=== PATIENT | female | born 1975 | race Caucasian/White ===

== ENCOUNTER 2016-10-26 13:46 | Day surgery (SDC) | payer OTHER ==
[2016-10-26] VITALS (10 sets, daily range): BP systolic 108–155; BP diastolic 46–132; PULSE 74–99; RESP 12–18; O2SAT 97–100
[~2016-10-26] VITALS: Ht 177.8 cm; Wt 98.2 kg
[~2016-10-26 13:46] MED LIST: CIPR-198 PO; LEVO50TA6 PO; OMEP-113 PO
[2016-10-26] MEDS ORDERED: fentaNYL-PF 50 mCg/mL 2 mL Inj ONE (13:47)
[2016-10-26] MEDS ORDERED: Lactated Ringer's 1,000 ML IV ONE (15:13)
[2016-10-26] MEDS ORDERED: OXYC1TAB24 PO (15:51)
[2016-10-26] MEDS ORDERED: TAMS0.4C29 PO (15:51)
[2016-10-26] MEDS ORDERED: CeFAZolin Inj 2 gm / 50mL D5W IV ONE (15:53)
--- NOTE | 2016-10-26 16:42 | PCM.HPANE ---
Patient Data Surgeon Admitting Provider: Attending Provider:Amrik Carmona MD Primary Care Physician:Sandi Hidalgo Other Provider:Erica Dobbins Anesthesia Reason for Visit Right Stone Ht/WT & BMI Height (Feet): 5 Height (Inches): 10 Weight (Kilograms): 98.2 Body Mass Index 30.00 Allergies Coded Allergies: TAPE (Verified Allergy, Unknown, 10/26/16) No Known Allergies (Verified , 10/26/16) Past Anesthesia History Anesthesia History: Denies:: Anesthesia Reactions Diabetes History Hx Diabetes?: No MRSA MRSA: No Medications Home Meds Incl Beta Edenilson: No Reported Medications oxyCODONE-Acetaminophen 5-325 mg 1 Each Tablet1 Tab PO Q6H PRN For Pain Ref 0 10/26/16 Tamsulosin ER 0.4 Mg Cap.er.24h0.4 Mg PO DAILY Ref 0 10/26/16 Ciprofloxacin 500 Mg Cityag595 Mg PO BID 10 Days Ref 0 02/08/14 Discontinued Reported Medications Omeprazole Magnesium (Omeprazole)20 Mg Capsule.dr20 Mg PO BID 30 Days Ref 0 02/08/14 Levothyroxine 50 Mcg Cfzugr60 Mcg PO DAILY 30 Days Ref 0 02/08/14 History History of ENT Problems?: No HEENT History: Denies:: Cataracts Dysphagia Sinus Problem Hx of Heart Problems?: No Hx of Respiratory Problem?: No Respiratory History: Denies:: Asthma COPD Chest Surgery Dyspnea Emphysema Hemoptysis Pneumonia Tuberculosis Hx Neurologic Problems?: Yes Neurological History: Positive for:: Dizziness (dizzy spells for six months) Headaches Denies:: Alzheimer's Disease CVA Dementia Parkinson's Disease Seizures Hx of GI Problems?: No Hx of Problems?: No Genitourinary History: Denies:: Kidney Stones Urinary Tract Infection Female Hx: Denies:: Currently Hx of Psycho/Social Problems?: Yes Psycho Social History: Positive for:: Anxiety Bipolar Disorder Hx Depression Suicide Attempt Hx Surgeries?: Yes (several abd, knee and foot) Other History: Positive for:: Hospitalization Denies:: Cancer Thyroid Disease History Blood Transfusions: Denies:: Blood Transfuse Reaction Blood Transfusions Hx Diabetes: No Hx Alcohol Use: Yes (couple drinks a week)Hx Substance Use: Yes Stop/Bang Risk Assessment Category Category 1A: Patient has history of documented sleep apnea, and HAS NOT received any narcotic, sedative or anesthesia administration during this stay. Category 1B: Patient has history of documented sleep apnea, and HAS received any narcotic , sedative or anesthesia administration during this stay Category 2: Patient has SUSPECTED Obstructive Sleep Apnea, and HAS received any narcotic , sedative or anesthesia administration during this stay. Category 3: Patient has SUSPECTED Obstructive Sleep Apnea and HAS NOT received narcotic, sedative or anesthesia administration during this stay. Category 4: Outpatient in Procedural Areas with known sleep apnea or who screen positive for High Risk via the STOP/BANG questionnaire. Exam Exam Vital Signs Vital Signs Date Time Temp Pulse Resp B/P Pulse Ox O2 Delivery O2 Flow Rate FiO2 10/26/16 15:16 36.8 96 18 123/64 99 Room Air General Appearance: Alert, Oriented X3, Cooperative HEENT/AIRWAY: MP 2, Neck Movement (from), Mouth Opening (wnl) Lungs: Clear to Auscultation Heart: Exam Unremarkable Meds/Labs/Diagnostics Admission Meds Current Medications Lactated Ringer's (Lr) 1,000 ml @ ud STK-MED ONCE IV Last administered on t 15:13; Start 10/26/16 at 15:13; Stop 10/26/16 at 15:14; Status DC Plan Impression Patient chart reviewed, patient interviewed and anesthestic plan with risks, benefits, and alternatives discussed, and informed consent obtained. NPO Status: 10/25 ASA Physical Status: ASA2 Mod Systemic Disease Anesthetic Plan: GA Bene/Risks/Altern/Consents: Yes HP Complete Prior to Induction: Yes Landon Mckinney MD Oct 26, 2016 16:42
--- NOTE | 2016-10-26 16:49 | DRSVH ---
PROCEDURE: X-RAY KUB ([id number]) INDICATIONS: PRE OP TECHNIQUE: One view of the abdomen acquired. COMPARISON: [facility], CT, CT ABDOMEN PELVIS W CONTRAST, 10/24/2016, 10:45 PM. FINDINGS: Surgical changes and devices: An IUD is projected over the pelvis. There is likely a radiopaque objec t superimposed over the patient's right upper quadrant. Anastomotic suture is present in the left upp er quadrant. Bowel: Bowel gas pattern is normal. Soft tissues: No suspicious abdominal calcifications. Visualized solid organ contours appear normal in size. Bones: No suspicious bony lesions. IMPRESSION: No acute intra-abdominal findings. Dictated by: Sumaya Bennett M.D. on 10/26/2016 at 16:45 Approved by: Sumaya Bennett M.D. on 10/26/2016 at 16:47
[2016-10-26] MEDS ORDERED: Lactated Ringer's 1,000 ML IV SCH (17:17)
[2016-10-26] MEDS ORDERED: Lactated Ringer's 500 ML IV PRN (17:17)
[2016-10-26] MEDS ORDERED: hydrALAZINE 20 mg/mL Inj IVPUSH PRN (17:20)
[2016-10-26] MEDS ORDERED: EPHEDrine Sulfate 50 mg/mL Inj IM PRN (17:20)
[2016-10-26] MEDS ORDERED: Dexamethasone 4 mg/mL Inj IVPUSH PRN (17:20)
[2016-10-26] MEDS ORDERED: Atropine 0.4 mg/mL Inj IVPUSH PRN (17:20)
[2016-10-26] MEDS ORDERED: Labetalol 5 mg/mL 4 mL Inj IV PRN (17:20)
[2016-10-26] MEDS ORDERED: fentaNYL-PF 50 mCg/mL 2 mL Inj IVPUSH PRN (17:20)
[2016-10-26] MEDS ORDERED: Phenylephrine 10,000 mCg/mL Inj IVPUSH PRN (17:20)
[2016-10-26] MEDS ORDERED: hydrOXYzine Inj 25 MG/1 mL SDV IM PRN (17:20)
[2016-10-26] MEDS ORDERED: Ondansetron 2 mg/mL 2 mL Inj IVPUSH PRN (17:20)
[2016-10-26] MEDS ORDERED: EPHEDrine Sulfate 50 mg/mL Inj IVPUSH PRN (17:20)
[2016-10-26] MEDS ORDERED: Belladonna Alk-Opium 60 mg Rectal Suppository RECTAL ONE (17:38)
[2016-10-26] MEDS ORDERED: Iopamidol-300 50 mL Inj IV ONE (18:06)
[2016-10-26] MEDS: HYDROmorphone 1 mg/mL Inj IVPUSH PRN ×4 (18:28→18:54)
--- NOTE | 2016-10-27 00:40 | HP PRE OP ---
[address] [address] PREOPERATIVE HISTORY AND PHYSICAL PATIENT: LANCE ANDERSON : 1975 MR#: [id number] ADMIT: 10/26/2016 JOB ID: [id number] HISTORY OF PRESENT ILLNESS: The patient is a very pleasant 41-year-old white female who had been experiencing her usual health until a little over one week ago when she began having irritative voiding symptoms and right flank and back pain. She presented to the [facility]. Her urine appeared infected and she was prescribed Macrobid. Her symptoms and pain were not improving and she saw her primary care physician six days ago, and the prescription was changed to ciprofloxacin, which she remained on. However, that antibiotic did not change her presenting complaint. Her and her , Daniel, inform me that they received a letter from [facility] over the weekend stating that her urine culture eight days ago was negative. She presented to [facility] on October 24, 2016, and with similar complaints. A CT KUB was performed and was interpreted as having right hydroureteronephrosis down the very distal right ureter and possibly a radiolucent clot 5 mm was seen in that vicinity, which was also noted to be near some surgical clips from a past appendectomy. Comparison to an MRI from 2012 demonstrates that the dilation of the right ureter was not present then. She is a nonsmoker and never has. ALLERGIES: None. HEALTH HISTORY: Noncontributory. SOCIAL HISTORY: She is to Daniel happily. Denies use of recreational drugs. PHYSICAL EXAMINATION: She is sitting upright and comfortable, but has had pain as high as 7/10 with the Percocet over the weekend. Head and neck exam: Atraumatic, normocephalic. Chest: Equal, clear and unlabored bilaterally. Heart rate is regular. Abdomen is protuberant, soft. Bowel sounds are active. CVA is equivocally tender on the right, nontender on the left. Pelvic not performed. Extremities: No pallor, edema, clubbing or cyanosis. IMPRESSION: 1. Right flank and abdominal pain. 2. Right hydronephrosis. At this point, the initial cultures were negative eight days ago and urine culture two days ago is preliminary showing no growth. There is a 1 mm possible calcification in the vicinity of the distal ureter. PLAN: Discussion, informed consent, and urgent scheduling today for cystoscopy, right retrograde pyelogram, possible right stone extraction and right stent placement.
--- NOTE | 2016-10-27 08:00 | OP ---
[address] [address] OPERATIVE REPORT PATIENT: LANCE ANDERSON : 1975 MR#: [id number] ADMIT: 10/26/2016 JOB ID: [id number] DATE OF SURGERY: 10/26/2016 PREOPERATIVE DIAGNOSIS(ES): 1. Intractable right renal colic. 2. Probable right ureterovesical junction calculus. POSTOPERATIVE DIAGNOSIS(ES): 1. Intractable right renal colic. 2. Probable right ureterovesical junction calculus. OPERATION PERFORMED: 1. Cystoscopy. 2. Right ureteroscopic stone extraction and placement of right ureteral stent. SURGEON: Amrik Carmona MD ANESTHESIOLOGIST: Landon Mckinney MD ANESTHESIA: General. FINDINGS: Urethra normal. The left ureteral orifice was normal in position and appearance. The right was obscured by severe bullous edema and erythema. The small spiculated stone that was evident on preop KUB correlating to that questioned in the recent CT KUB was impacted in the intramural ureter. Balloon dilation of the right ureterovesical junction resulted in either crumbling of the stone, or perhaps extrusion of it medially. The remainder of the ureter to the level of the ureteropelvic junction was unremarkable. PROCEDURE SUMMARY: The patient was positioned supine, was administered general anesthetic. She was then repositioned in semi-lithotomy and the lower abdomen, genitalia, and groin were prepped and draped in sterile fashion. The 22-Djiboutian panendoscope was then passed in the lower urinary tract, with the findings as described above. Next, using a 0.35 Glidewire, with the assistance of a 5-Djiboutian Pollack catheter, careful and gentle probing of the inflamed and edematous right ureteral orifice and intramural ureter was conducted, and subsequently allowed successful passage of a 0.35 Glidewire into the right collecting system. The [place] catheter was then backloaded off the Glidewire, and now a 6 cm x 15-Djiboutian balloon dilating catheter was advanced over the Glidewire and across the right ureterovesical junction. The balloon was then inflated to 18 atmospheres for 5 minutes, after which the balloon was deflated. All instrumentation was then backloaded off the Glidewire. Now, the semi-rigid ureteroscope was introduced in the lower urinary tract and then into the right distal ureter, with the findings as described above. The ureteroscope was then removed and the panendoscope was front-loaded on the Glidewire. Now, a 6-Djiboutian x 22-32 multilength stent was selected. This was advanced over the Glidewire under direct and fluoroscopic guidance. NO RETRIEVAL LINE WAS LEFT ATTACHED. The patient was then repositioned in supine, awakened, transferred to the rhenderson, and transferred to recovery in stable condition.
--- NOTE | 2016-10-27 17:56 | PCM.ANEP1 ---
Post Anesthesia Phase 1 PACU Phase 1 Assessment Anesthetic Administered: GA Level of Alertness: Awake, talking MAO's with Equal Strength: Yes Pain: No Nausea or Vomiting: No Oxygen Delivery: Room Air Lungs: Clear to Auscultation Dermatome Level: Full Sensation Gume Bal MD Oct 27, 2016 17:56
--- NOTE | 2016-10-27 17:56 | PCM.ANEP2 ---
Post Anesthesia Evaluation ASA/CMS Post Anesthesia VS in Patient's Normal Range?: Yes Resp Stable; Airway Patent?: Yes CV Function & Hydration Stable: Yes Mental Status Recovered?: Yes Pain control Satisfactory?: Yes N/V Control Satisfactory?: Yes Gume Bal MD Oct 27, 2016 17:56
== END 2016-10-26 23:59 | disposition home or self-care (01) ==
LOC: SAS 13:46
PROVIDERS: ATTEND Specialist
DX: N20.0 Calculus of kidney (principal); R42 Dizziness and giddiness; R51 Headache; F41.9 Anxiety disorder, unspecified; F31.9 Bipolar disorder, unspecified; Z79.899 Other long term (current) drug therapy